=== PATIENT | male | born 1930 | race Caucasian/White ===

== ENCOUNTER 2018-11-06 16:30 | Emergency (ER) | payer OTHER, MEDICARE ==
--- NOTE | 2018-11-06 17:09 | ER Document Report ---
ED GI Bleed / Rectal Pain - General Chief Complaint: Rectal Bleeding Stated Complaint: RECTAL BLEEDING Time Seen by Provider: 11/06/18 16:55 Primary Care Provider: SCOTT OSEGUERA MD [NO LOCAL MD] - Follow up in 3-5 days Information source: Patient Notes: Patient is an 88-year-old male who presents today with one episode of bloody stools this afternoon. Patient on my examination on multiple repeat questioning denies any and all abdominal pain. He denies any vomiting, dysuria, or fevers. Patient did have a colonoscopy 4 days ago and was told that he had internal hemorrhoids. This was performed by Dr. Oseguera. Patient supposedly 4 days ago after the procedure had a temperature of 100.4. He has been afebrile since that time. The family states that the physician was aware of this and told them that they should monitor the patient. Patient has been afebrile since that time with no abdominal pain. Patient denies any lightheadedness, dizziness, chest pain, palpitations. Patient has a history of atrial fibrillation on EliAngella Joy. TRAVEL OUTSIDE OF THE [place] IN LAST 30 DAYS: No - Related Data Allergies/Adverse Reactions: Penicillins Adverse Reaction (Intermediate, Verified 11/06/18 17:09) Hives Past Medical History - Social History Smoking Status: Former Smoker Chew tobacco use (# tins/day): No Frequency of alcohol use: None Drug Abuse: None Family History: Reviewed & Not Pertinent Patient has suicidal ideation: No Patient has homicidal ideation: No - Past Medical History Cardiac Medical History: Reports: Hx Atrial Fibrillation, Hx Hypercho lesterolemia, Hx Hypertension Pulmonary Medical History: Reports: Hx COPD Renal/ Medical History: Denies: Hx Peritoneal Dialysis Review of Systems - Review of Systems Constitutional: denies: Fever EENT: denies: Eye discharge, Nose discharge Cardiovascular: denies: Chest pain, Palpitations, Dizziness, Lightheaded Respiratory: denies: Cough, Short of breath Gastrointestinal: Diarrhea. denies: Vomiting Genitourinary: denies: Dysuria Musculoskeletal: denies: Leg swelling Skin: Other - no hives. denies: Rash Neurological/Psychological: Other - no slurred speech -: Yes All other systems reviewed and negative Physical Exam - Vital signs Vitals: Pulse Ox 98 11/06/18 16:55 Notes: Reviewed vital signs and nursing note as charted by RN. CONSTITUTIONAL: Alert and oriented and responds appropriately to questions. Well-appearing; well-nourished HEAD: Normocephalic; atraumatic EYES: PERRL; Conjunctivae clear, sclerae is not pale ENT: Normal nose; no rhinorrhea; moist mucous membranes; pharynx without lesions noted NECK: Supple without meningismus; non-tender; no cervical lymphadenopathy, no masses CARD: Irregular; no murmurs; symmetric distal pulses RESP: Normal chest excursion without splinting or tachypnea; breath sounds clear and equal bilaterally; no wheezes, no rhonchi, no rales ABD/GI: Normal bowel sounds; old midline abdominal scar with a compressible nontender long-standing umbilical hernia; soft, nontender to deep palpation of all 4 quadrants of the abdomen. No palpable organomegaly or masses GI/: Patient has Hemoccult positive stool with no perirectal lesions BACK: The back appears normal and is non-tender to palpation EXT: Normal ROM in all joints; non-tender to palpation; no edema SKIN: No acute lesions noted NEURO: CN 2-12 intact; 5/5 bilateral upper and lower extremity strength with sensation intact to light touch PSYCH: The patient's mood and manner are appropriate. Grooming and personal hygiene are appropriate. Course - Re-evaluation Re-evalutation: 11/06/18 17:08 Given the history and physical examination we will order hemoglobin, and place the patient on the monitor. Patient was just diagnosed 4 days ago with internal hemorrhoids secondary to rectal bleeding that he has had intermittently for 2 months. Patient has had no fevers or abdominal pain for the last 3 days. One bloody bowel movement today. On Eliquis. Given the above history and physical I do not believe that the patient requires any imaging at this time. We will order hemoglobin level and reassess for any repeat episodes of bloody bowel movements. If this is unremarkable and the patient does not have any repeat episodes, we will most likely repeat the hemoglobin level in 4-hour period. If hemoglobin is stable and the patient feels well, we will consider discharge. - Vital Signs Vital signs: Temp Pulse Resp BP Pulse Ox 97.7 F 75 16 148/68 H 97 11/06/18 20:36 11/06/18 20:36 11/06/18 20:36 11/06/18 20:36 11/06/18 20:36 - Laboratory Result Diagrams: 11/06/18 19:55 11/06/18 16:57 Laboratory results interpreted by me: 11/06/18 11/06/18 11/06/18 16:57 16:57 19:55 RBC 3.33 L 3.24 L Hgb 9.7 L 9.3 L Hct 27.9 L 26.7 L RDW 15.1 H 15.1 H Chloride 111 H BUN 22 H Glucose 166 H Calcium 8.1 L Discharge - Discharge Clinical Impression: Rectal bleeding Anemia Qualifiers: Anemia type: unspecified type Qualified Code(s): D64.9 - Anemia, unspecified Condition: Stable Disposition: HOME, SELF-CARE Instructions: Hemorrhoids ([facility]), Rectal Bleeding, Unclear Cause ([facility]) Additional Instructions: Please keep your appointment with Dr. Oseguera, and follow-up, if you develop continue rectal bleeding, do not hesitate to return to the emergency department, I recommend holding your Eliquis tonight and resuming tomorrow morning. Referrals: SCOTT OSEGUERA MD [NO LOCAL MD] - Follow up in 3-5 days
[2018-11-06 17:20] LABS: INTERNATIONAL RATION (INR) 1.05; PROTHROMBIN TIME 14.2 SEC (11.4-15.4)
[2018-11-06 17:25] LABS: ABSOLUTE EOSINOPHILS # (AUTO) 0.4 10^3/uL (0.0-0.6); ABSOLUTE LYMPHOCYTES (AUTO) 1.6 10^3/uL (0.5-4.7); ABSOLUTE MONOCYTES (AUTO) 0.6 10^3/uL (0.1-1.4); ABSOLUTE NEUT (AUTO) 4.3 10^3/uL (1.7-8.2); BASOPHILS % (AUTO) 0.7 % (0-2); EOSINOPHILS % (AUTO) 5.5 % (0-6); HEMATOCRIT 27.9 % (37.9-51.0); HEMOGLOBIN 9.7 g/dL (13.5-17.0); MEAN CORPUSCULAR HGB CONC 34.7 g/dL (32.0-36.0); MEAN CORPUSCULAR VOLUME 84 fl (80-97); MONOCYTES % (AUTO) 8.5 % (3-13); PLATELET COUNT 225 10^3/uL (150-450); RED BLOOD COUNT 3.33 10^6/uL (4.35-5.55); RED CELL DISTRIBUTION WIDTH 15.1 % (11.5-14.0); SEGMENTED NEUTROPHILS % (AUTO) 62.3 % (42-78); TOTAL CELLS COUNTED % (AUTO) 100 %
[2018-11-06 17:29] LABS: ANION GAP 7 (5-19); BLOOD UREA NITROGEN 22 mg/dL (7-20); CALCIUM 8.1 mg/dL (8.4-10.2); CARBON DIOXIDE 24 mmol/L (22-30); CHLORIDE 111 mmol/L (98-107); GLUCOSE 166 mg/dL (75-110); POTASSIUM 3.9 mmol/L (3.6-5.0); SODIUM 142.1 mmol/L (137-145)
--- NOTE | 2018-11-06 18:34 | ER Document Report ---
ED General - General Chief Complaint: Rectal Bleeding Stated Complaint: RECTAL BLEEDING Time Seen by Provider: 11/06/18 16:55 Primary Care Provider: SCOTT OSEGUERA MD [NO LOCAL MD] - Follow up in 3-5 days Notes: Patient is a 88-year-old male, with atrial fibrillation on Eliquis that presents to the emergency department for chief complaint of rectal bleeding. Patient states that he had an episode of diarrhea today, that concerned him, he is on Eliquis, recently had a colonoscopy was diagnosed with some rectal polyps, as well as internal hemorrhoids, he had it done because he was having recurrent loose stools. He has had a history of colon cancer with resection and that is what it was performed for. He denies any pain associated with this, and otherwise feels well at this time, denies having any sweats, chills, chest pain, shortness of breath, difficulty breathing or palpitations. Denies feeling ligh theaded at this time. Past Medical History: Atrial fibrillation, history of colon cancer Past Surgical History: Colon resection Social History: Denies current tobacco, alcohol or drug use. Family History: Reviewed and noncontributory for presenting illness Allergies: Reviewed, see documented allergy list. REVIEW OF SYSTEMS: Other than noted above, the 12 point review of systems was reviewed with the patient and were negative, all pertinent findings are included in the HPI. PHYSICAL EXAMINATION: Vital signs reviewed, nursing noted reviewed. GENERAL: Elderly, obese male, no acute distress HEAD: Atraumatic, normocephalic. EYES: Eyes appear normal, extraocular movements intact, sclera anicteric, conjunctiva are normal. ENT: nares patent, oropharynx clear without exudates. Moist mucous membranes. NECK: Normal range of motion, supple without lymphadenopathy LUNGS: Breath sounds clear to auscultation bilaterally and equal. No wheezes rales or rhonchi. HEART: Heart rate normal, with a regular rhythm, no audible murmur ABDOMEN: Soft, obese, nontender, normoactive bowel sounds. No rebound, guarding, or rigidity. No masses appreciated. EXTREMITIES: Nontender, good range of motion, no pitting or edema. NEUROLOGICAL: No focal neurological deficits. Moves all extremities s pontaneously Motor and sensory grossly intact on exam. PSYCH: Normal mood, normal affect. SKIN: Warm, Dry, normal turgor, no rashes or lesions noted on exposed skin TRAVEL OUTSIDE OF THE [place] IN LAST 30 DAYS: No - Related Data Allergies/Adverse Reactions: Penicillins Adverse Reaction (Intermediate, Verified 11/06/18 17:09) Hives Past Medical History - General Information source: Patient - Social History Smoking Status: Former Smoker Chew tobacco use (# tins/day): No Frequency of alcohol use: None Drug Abuse: None Family History: Reviewed & Not Pertinent Patient has suicidal ideation: No Patient has homicidal ideation: No - Past Medical History Cardiac Medical History: Reports: Hx Atrial Fibrillation, Hx Hypercholesterolemi a, Hx Hypertension Pulmonary Medical History: Reports: Hx COPD Renal/ Medical History: Denies: Hx Peritoneal Dialysis Physical Exam - Vital signs Vitals: Pulse Ox 98 11/06/18 16:55 Course - Re-evaluation Re-evalutation: Patient seen and examined vital signs reviewed. Laboratory data and imaging were ordered as appropriate for the patient's presenting symptoms and complaint, with consideration of any critical or life threatening conditions that may be associated with their obtained history and exam as noted above. Results were reviewed when available and demonstrated mild anemia, hemoglobin was 9.7, otherwise unremarkable workup, BUN was not significantly elevated, when compared to the creatinine The patient was re-evaluated and was stable, we did repeat his hemoglobin, it was 9.3 after 3 hours, no further episodes of bloody diarrhea in the emergency department, patient is not tachycardic and demonstrating signs of ongoing hemorrhage, advised to hold his Eliquis this evening, resume in the morning, he has an upcoming appointment with his metal caster to follow-up. Patient in this patient's daughter who is at bedside were agreeable with plan of care, they were advised however he has continued bleeding that he could return to the emergency department sooner to be reevaluated. Results were discussed with the patient at this point, after careful consideration I feel that that patient can be discharged from the emergency department, the patient was educated treatments and reasons to return to the emergency department based on their presumed diagnosis as noted above, they were advised to followup with a primary care physician in 2-3 days. Patient was agreeable to plan of care. *Note is created using voice recognition software and may contain spelling, syntax or grammatical errors. Laboratory 11/06/18 11/06/18 11/06/18 16:57 16:57 16:57 WBC 7.0 RBC 3.33 L Hgb 9.7 L Hct 27.9 L MCV 84 MCH 29.0 MCHC 34.7 RDW 15.1 H Plt Count 225 Seg Neutrophils % 62.3 Lymphocytes % 23.0 Monocytes % 8.5 Eosinophils % 5.5 Basophils % 0.7 Absolute Neutrophils 4.3 Absolute Lymphocytes 1.6 Absolute Monocytes 0.6 Absolute Eosinophils 0.4 Absolute Basophils 0.0 PT 14.2 INR 1.05 Sodium 142.1 Potassium 3.9 Chloride 111 H Carbon Dioxide 24 Anion Gap 7 BUN 22 H Creatinine 1.11 Est GFR ( Amer) > 60 Est GFR (Non-Af Amer) > 60 Glucose 166 H Calcium 8.1 L Blood Type Antibody Screen 11/06/18 11/06/18 16:57 19:55 WBC 7.2 RBC 3.24 L Hgb 9.3 L Hct 26.7 L MCV 83 MCH 28.7 MCHC 34.8 RDW 15.1 H Plt Count 232 Seg Neutrophils % Lymphocytes % Monocytes % Eosinophils % Basophils % Absolute Neutrophils Absolute Lymphocytes Absolute Monocytes Absolute Eosinophils Absolute Basophils PT INR Sodium Potassium Chloride Carbon Dioxide Anion Gap BUN Creatinine Est GFR ( Amer) Est GFR (Non-Af Amer) Glucose Calcium Blood Type A POSITIVE Antibody Screen NEGATIVE - Vital Signs Vital signs: Temp Pulse Resp BP Pulse Ox 97.7 F 75 16 148/68 H 97 11/06/18 20:36 11/06/18 20:36 11/06/18 20:36 11/06/18 20:36 11/06/18 20:36 - Laboratory Result Diagrams: 11/06/18 19:55 11/06/18 16:57 Laboratory results interpreted by me: 11/06/18 11/06/18 11/06/18 16:57 16:57 19:55 RBC 3.33 L 3.24 L Hgb 9.7 L 9.3 L Hct 27.9 L 26.7 L RDW 15.1 H 15.1 H Chloride 111 H BUN 22 H Glucose 166 H Calcium 8.1 L Discharge - Discharge Clinical Impression: Rectal bleeding Anemia Qualifiers: Anemia type: unspecified type Qualified Code(s): D64.9 - Anemia, unspecified Condition: Stable Disposition: HOME, SELF-CARE Instructions: Hemorrhoids ([facility]), Rectal Bleeding, Unclear Cause ([facility]) Additional Instructions: Please keep your appointment with Dr. Oseguera, and follow-up, if you develop continue rectal bleeding, do not hesitate to return to the emergency department, I recommend holding your Eliquis tonight and resuming tomorrow morning. Referrals: SCOTT OSEGUERA MD [NO LOCAL MD] - Follow up in 3-5 days
[2018-11-06 20:05] LABS: HEMATOCRIT 26.7 % (37.9-51.0); HEMOGLOBIN 9.3 g/dL (13.5-17.0); MEAN CORPUSCULAR HEMOGLOBIN 28.7 pg (27.0-33.4); MEAN CORPUSCULAR HGB CONC 34.8 g/dL (32.0-36.0); MEAN CORPUSCULAR VOLUME 83 fl (80-97); PLATELET COUNT 232 10^3/uL (150-450); RED BLOOD COUNT 3.24 10^6/uL (4.35-5.55); RED CELL DISTRIBUTION WIDTH 15.1 % (11.5-14.0); WHITE BLOOD COUNT 7.2 10^3/uL (4.0-10.5)
[2018-11-06 20:35] VITALS: BP 148/68
== END 2018-11-06 20:39 | disposition home or self-care (01) ==
LOC: ER 16:30
DX: K62.5 Hemorrhage of anus and rectum (principal); D64.9 Anemia, unspecified; R19.7 Diarrhea, unspecified; E66.9 Obesity, unspecified; J44.9 Chronic obstructive pulmonary disease, unspecified; I10 Essential (primary) hypertension; I48.91 Unspecified atrial fibrillation; Z79.01 Long term (current) use of anticoagulants; Z85.038 Personal history of other malignant neoplasm of large intestine; Z90.49 Acquired absence of other specified parts of digestive tract; Z87.891 Personal history of nicotine dependence
CPT/HCPCS: 36415; 80048; 85025; 85027; 85610; 86850; 86900; 86901; 99283